=== PATIENT | female | born 1995 ===

== ENCOUNTER 2025-08-02 06:16 | Day surgery (SDC) | payer BC, SELFPAY ==
[2025-08-02] VITALS (7 sets, daily range): BP systolic 104–119; BP diastolic 56–78; BMI 26.9
[2025-08-02] MEDS: TYLENOL 1000 MG PO (11:23)
[2025-08-02] MEDS: NORMOSOL-R/PLASMALYTE-A 1000 IV (11:24)
[2025-08-02] MEDS: EMEND 40 MG PO (12:24)
[2025-08-02] MEDS: VANCOCIN 200 IV (12:58)
--- NOTE | 2025-08-02 15:19 | W.IMMPOSTOP ---
Surgical Immed Post Op Note
-
Primary Surgeon: Alex Murray MD
Assisting Surgeon:
Pre-op Diagnosis: right knee lateral meniscus tear
Post-op Diagnosis: right knee lateral meniscus tear
Procedure Performed: arthroscopic right knee partial lateral meniscectomy
Anesthesia Type: general
Specimen / Cultures: none
Estimated Blood Loss: 1mL
Complications: none apparent
Tourniquet time: 24 minutes @ 250 mmHg
Operative Findings: intact cruciate ligaments, no chondrosis, fraying of anterior horn of lateral meniscus and fraying of free edge of body of lateral meniscus
Operative dictation #: [id number]
== END 2025-08-02 16:45 | disposition home or self-care (01) ==
LOC: SDS 06:16
PROVIDERS: ATTENDING PHYSICIAN Student in an Organized Health Care Education/Training Program
DX: S83.281A Other tear of lateral meniscus, current injury, right knee, initial encounter (principal); X58.XXXA Exposure to other specified factors, initial encounter
CPT/HCPCS: 29881